=== PATIENT | female | born 1955 | race Hispanic/Latino ===

== ENCOUNTER 2025-03-05 13:02 | Outpatient (CLI) | payer MEDICARE, SELFPAY ==
--- OUTSIDE RECORDS SUMMARY | 2025-03-05 13:26 | XMS_ITS | Clinical Summary ---
Author Organization [facility] Address [address] [place] [address] Care Team Providers Care Packer Insulation Name Role Phone Unavailable Primary Care Provider Unavailabl e Source Comments [facility] Affiliates and Associated Physician Practices is amultiple site organization consisting of ambulatory clinics and hospital sitesin [place], [place], [place] and [place]. This disclosure is being madepursuant to the Care Everywhere program and may not contain all information available regarding this patient. Last updated 18.[facility] Social History Tobacco Use Types Packs/Day Years Used Date Smoking Tobacco: Never Alcohol Use Standard Drinks/Week Comments No 0 (1 standard drink = 0.6 oz pur e alcohol) Comments Unknown Sex and Gender Information Value Date Recorded Sex Assigned at Not on file Legal Sex Female 5:54 PM TREASURY CONSULTANT Gender Identity Not on file Sexual Orientation Not on file Plan of Treatment Health Maintenance Due Date Last Done Comments BONE DENSITY TESTING 1955 COLOGUARD (AGES 45-75) - COL ON CA SCREENING 1956 COLON MONITORING 1956 COLONOSCOPY - COLON CA SCREENING 1956 CT COLONOGRAPHY - COLON CA SCREENING 1956 Colorectal Cancer Screening 1956 FIT - COLON CA SCREENING 1956 FLEX SIG - COLON CA SCREENING 1956 LIPID TESTING 1956 MAMMOGRAM 1956 HEPATITIS C SCREENING 09/28/1974 DTAP/TDAP/TD VACCINES (1 - Tdap) 10/03/1975 PNEUMOCOCCAL VACCINE 50+ (1 of 1 - PCV) 2006 ZOSTER VACCINE (1 of 2) 2006 COVID-19 VACCINE (1 - 2024-2 5 season) 2024 DEPRESSION SCREENING 07/26/2024 MEDICARE AWV CALENDAR YEAR 2024 INFLUENZA VACCINE (#1) 2025 Respiratory Syncytial Virus (RSV) Vaccine Pt: or over 60 yrs (1 - 1-dose 75+ series) 10/03/2031 HEPATITIS B VACCINE Aged Out No longe r eligible based on patient's age to complete this topic HIB VACCINE Aged Out No longer eligi ble based on patient's age to complete this topic HPV VACCINE Aged Out No longer eligi ble based on patient's age to complete this topic MENINGOCOCCAL (Group B) VACC INE SHARED DECISION-MAKING Aged Out No longer eligibl e based on patient's age to complete this topic MENINGOCOCCAL GROUPS A/C/Y/W VACCINE Aged Out No longer eligible b ased on patient's age to complete this topic [place] [address] MEDICAID - OUT OF [facility]
--- OUTSIDE RECORDS SUMMARY | 2025-03-05 13:26 | XMS_ITS | Clinical Summary ---
Author Organization [facility] Address [address] [place] [address] Phone Care Team Providers Care Policy Manager Name Role Phone Kirby Jack MD Primary Care Provider Medications amLODIPine (NORVASC) 5 MG Tablet TAKE ONE TABLET BY MOUTH EVERY EVENING FOR BLOOD PRESSURE 4 Active levETIRAcetam (KEPPRA) 500 MG Tablet TAKE ONE TABLET BY MOUTH THREE TIMES DAILY FOR SEIZURES 4 Active losartan (COZAAR) 50 MG Tablet TAKE ONE TABLET BY MOUTH EVERY MORNING FOR BLOOD PRESSURE 4 Active aspirin EC 81 MG Tablet Delayed Response Take 81 mg by mouth daily. Active atorvastatin (LIPITOR) 20 MG Tablet Take 20 mg by mouth daily. Active Dapagliflozin Propanediol (Farxiga) 10 MG Tablet Take by mouth. Activ e insulin glargine (Lantus) 100 UNIT/ML Solution 100 Units by Subcutaneous route nightly. Active levothyroxine (SYNTHROID) 50 MCG Tablet Take 50 mcg by mouth daily. Active Social History Tobacco Use Types Packs/Day Years Used Date Smoking Tobacco: Never Smokeless Tobacco: Never Tobacco Cessation:Counseling Given: Not Answered Alcohol Use Standard Drinks/Week Comments Never 0 (1 standard drink = 0.6 oz pur e alcohol) Comments Unknown Sex and Gender Information Value Date Recorded Sex Assigned at Not on file Legal Sex Female 9:34 AM CDT Gender Identity Not on file Sexual Orientation Not on file Plan of Treatment Upcoming Encounters Date Type Department Care Team ([facility] Contact Info) Description 12/24/2025 10:00 AM CDT Office Visit [facility] [address] [place] [address] Fahad Henderson MD [address] [place] [address] Health Maintenance Due Date Last Done Comments DEXA Bone Density 1955 Hepatitis C Virus (HCV) Screening 1956 Mammogram 1956 TdaP Immunization 1956 Cologuard 2001 Colonoscopy 2001 Colorectal Cancer Screening 2001 Immunochemical Fecal Occult Blood 2001 Pneumococcal Immunization (5 0+ years) (1 of 1 - PCV) 2006 Zoster Immunization (1 of 2) 2006 Respiratory Syncytial Virus (RSV) Immunization (Adult) (1 - Risk 60-74 years 1-dose series) 2016 SARS-COV-2 Immunization ( season) 2024 Influenza Immunization (#1) 2025 Hepatitis B Immunization Aged Out No longer eligible based on patient's age to complete this topic Human Papillomavirus (HPV) Immunization Aged Out No longer eligible b ased on patient's age to complete this topic Meningococcal Immunization (ACWY) Aged Out No longer eligible based on patient's age to complete this topic Rotavirus Immunization Aged Out No lo nger eligible based on patient's age to complete this topic Insurance MEDICARE [facility] Care Teams Policy Manager Relationship Specialty Start Date End Date Kirby Jack MD [address] [place] [address] PCP - General Internal Medicine 04/14/24
== END 2025-03-05 13:03 | disposition home or self-care (01) ==
LOC: ANHAUDIO 13:04
PROVIDERS: PCP Internal Medicine; Visit Provider Internal Medicine Infectious Disease
DX: H91.93 Unspecified hearing loss, bilateral (principal); H74.8X3 Other specified disorders of middle ear and mastoid, bilateral
CPT/HCPCS: 92553; 92567

== ENCOUNTER 2025-04-26 13:32 | Outpatient (CLI) | payer MEDICARE, SELFPAY ==
--- OUTSIDE RECORDS SUMMARY | 2025-04-26 13:34 | XMS_ITS | Clinical Summary ---
Author Organization [facility] Address [address] [place] [address] Care Team Providers Care Science Writer Name Role Phone Kirby Jack MD Primary Care Provider Source Comments [facility],non-owned Affiliates and Associated Physician Practices is amultiple site organization consisting of ambulatory clinics and hospital sitesin [place], [place], [place] and [place]. This disclosure is being madepursuant to the Care Everywhere program and may not contain all information available regarding this patient. Last updated 18.[facility] Allergies No known active allergies Medications * Be aware that medications may not be up to date on this document. Alwaysverify current medications with the patient. alendronate (Fosamax) 70 MG tablet TAKE ONE TABLET ONCE EVERY WEEK 02/23/20 25 Active amLODIPine (Norvasc) 5 MG tablet TAKE ONE TABLET BY MOUTH EVERY EVENING FOR BLOOD PRESSURE Active aspirin EC (Ecotrin) 81 MG tablet Take 1 (one) tablet by mouth once daily Active atorvastatin (Lipitor) 20 MG tablet TAKE ONE TABLET DAILY EVERY NIGHT AT BEDTIME TO LOWER CHOLESTEROL Active Blood Glucose Monitoring Suppl (Pikhub Verio Flex System) w/Device KIT USE DIRECTED THREE TIMES DAILY, MORNING, MIDDAY & IN THE EVENING 06/02/20 24 Active GNP Earwax Removal Drops 6.5 % otic solution instill FIVE DROPS INTO THE AFFECTED EAR(S) TWICE DAILY EVERY MORNING & EVENING 02/23/20 25 Active dapagliflozin propanediol (Farxiga) 10 MG tablet Take by mouth. Activ e NelbeeTouch Verio test strip USE TO CHECK BLOOD SUGAR THREE TIMES DAILY, MORNING, MIDDAY & IN THE EVENING 05/31/20 Active ibuprofen (Motrin) 800 MG tablet Take 1 (one) tablet by mouth every 6 hours as needed For pain. 06/15/20 Active TRUEplus Insulin Syringe 30G X 5/16 0.5 ML MISC USE DIRECTED TWICE DAILY 05/22/20 Active TRUEplus Lancets 30G MISC USE TO CHECK BLOOD SUGAR THREE TIMES DAILY, MORNING, MIDDAY & IN THE EVENING 06/09/20 Active levETIRAcetam (Keppra) 500 MG tablet TAKE ONE TABLET BY MOUTH THREE TIMES DAILY FOR SEIZURES Active levothyroxine (Synthroid) 50 MCG tablet TAKE ONE TABLET BY MOUTH EVERY MORNING 30 MINUTES BEFORE BREAKFAST FOR THYROID Active losartan (Cozaar) 50 MG tablet Take 1 (one) tablet by mouth every morning for blood pressure Active insulin glargine (Lantus/Semglee ) 100 units/ml injection Inject 28 (twenty eight) Units subcutaneously at bedtime Active fluticasone propionate (Flonase) 50 MCG/ACT nasal spray [place] 2 (two) sprays into each nostril 2 times daily 48 g 4 03/19/20 25 Active azelastine (Astelin) 0.1 % nasal spray [place] 1 (one) spray into each nostril 2 times daily 90 mL 4 03/19/20 25 Active Active Problems Problem Noted Date Diagnosed Date Essential (primary) hypertension Type 2 diabetes mellitus without complication Overview (04/25/2025): IMO 04/25/2025 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 - ENT [address] [place] [phone] Marek Solis MD Middle ear effusion, left (Primary Dx) 04/16/2025 Travel 04/06/2025 Telephone [facility] - Neurology [address] [place] [phone] Kyleigh Mike MD Care Management 04/05/2025 1:00 PM CDT - 04/05/2025 11:59 PM CDT Hospital Encounter [facility] EKG/HOLTER [address] [place] [address] Kyleigh Mike MD Discharge Disposition: Home or Self Care 03/28/2025 Travel 03/21/2025 3:40 PM CDT - 03/21/2025 11:59 PM CDT Hospital Encounter [facility] LAB OP DRAW STATION [address] [place] [address] Discharge Disposition: Home or Self Care 03/21/2025 1:00 PM CDT Office Visit [facility] - Neurology [address] [place] [phone] Kyleigh Mike MD Persistent cognitive impairment (Primary Dx); Epilepsy, generalized, nonconvulsive (HCC) 03/21/2025 Travel 03/19/2025 2:30 PM CDT Office Visit [facility] - ENT [address] [place] [phone] Marek Solis MD Middle ear effusion, left (Primary Dx) 03/19/2025 Travel 03/08/2025 Travel from Last 3 Months Social History Tobacco Use Types Packs/Day Years Used Date Smoking Tobacco: Never Smokeless Tobacco: Never Tobacco Cessation:Counseling Given: Not Answered Alcohol Use Standard Drinks/Week Comments No 0 (1 standard drink = 0.6 oz pur e alcohol) Comments Unknown Sex and Gender Information Value Date Recorded Sex Assigned at Not on file Legal Sex Female 5:54 PM ADAPTED PHYSICAL EDUCATION AIDE Gender Identity Not on file Sexual Orientation Not on file Last Filed Vital Signs Vital Sign Reading Time Taken Comments Blood Pressure 128/73 04/16/2025 2:18 PM CDT Pulse 19 04/16/2025 2:18 PM CDT Temperature 36.7 C (98.1 F) 03/19/2025 2:38 PM CDT Respiratory Rate - - Oxygen Saturation 97% 03/21/2025 1:04 PM CDT Inhaled Oxygen Concentration - - Weight 55 kg (121 lb 3.2 oz) 04/16/2025 2:18 PM CDT Height 144.9 cm (4' 9.05) 04/16/2025 2:18 PM CD T Body Mass Index 26.18 04/16/2025 2:18 PM CDT Plan of Treatment Upcoming Encounters Date Type Department Care Team (Late st Contact Info) Description 05/04/2025 7:45 AM CDT Appointment [facility] [address] [address] [place] [address] 05/30/2025 2:00 PM ADAPTED PHYSICAL EDUCATION AIDE Office Visit [facility] - Neurology [address] [place] [address], [place] [phone] Winsome Vega APRN-CLINICAL PSYCHOLOGY PROFESSOR [address] [place] [phone] 06/04/2025 2:30 PM ADAPTED PHYSICAL EDUCATION AIDE Office Visit [facility] - ENT [address] [place] [phone] Marek Solis MD [address] [place] [address] [address] [place] [address] Health Maintenance Due Date Last Done Comments BONE DENSITY TESTING 1956 COLON MONITORING 1956 COLONOSCOPY - COLON CA SCREENING 1956 CT COLONOGRAPHY - COLON CA SCREENING 1956 FIT - COLON CA SCREENING 1956 FLEX SIG - COLON CA SCREENING 1956 MAMMOGRAM 1956 HEPATITIS C SCREENING 09/28/1974 DIABETES-SERUM CREATININE 1974 DTAP/TDAP/TD VACCINES (1 - Tdap) 10/03/1975 PNEUMOCOCCAL VACCINE 50+ (1 of 2 - PCV) 10/03/1975 ZOSTER VACCINE (1 of 2) 2006 Respiratory Syncytial Virus (RSV) Vaccine Pt: or over 60 yrs (1 - Risk 60-74 years 1-dose series) 2016 DEPRESSION SCREENING 07/26/2024 DIABETES - URINE PROTEIN SCREENING 07/26/2024 MEDICARE AWV CALENDAR YEAR 2024 DIABETES RETINOPATHY SCREENING 03/21/2025 DIABETES-FOOT EXAM WITH MONOFILAMENT 03/21/2025 DIABETES-HGB A1C 03/21/2025 COVID-19 VACCINE (1 - 2023-2 5 season) 2025 INFLUENZA VACCINE (#1) 2025 COLOGUARD (AGES 45-75) - COL ON CA SCREENING 03/09/2026 03/09/2023 Colorectal Cancer Screening 03/09/2026 HEPATITIS B VACCINE Aged Out No longe [...] on patient's age to complete this topic Procedures Procedure Name Priority Date/Time Associated Diagnosis Comments EKG 12-LEAD Routine 04/05/2025 12:51 PM CDT Epilepsy, generalized, nonconvulsive (HCC) ENCEPHALOPATHY AUTOIMMUNE EVAL BLOOD Routine 03/21/2025 4:02 PM CDT Epilepsy, generalized, nonconvulsive (HCC) from Last 3 Months Results * EKG 12-LEAD - OFFICE PERFORMED (04/05/2025 12:51 PM CDT) Pathologist [facility] Ventricular Rate 58 BPM [facility] Atrial Rate 58 BPM [facility] P-R Interval 150 ms [facility] QRS Duration ms 72 ms [facility] Q-T Interval ms 442 ms [facility] QTC Calculation (Bezet) 433 ms [facility] Calculated P [place] 39 degrees [facility] Calculated R [place] 21 degrees [facility] Calculated T [place] 53 degrees [facility] Interpretation EKG SINUS BRADYCARDIA SEPTAL INFARCT , AGE UNDETERMINED ABNORMAL ECG NO PREVIOUS ECGS AVAILABLE Confirmed by ALEXY VINCETN, J CARLOS ([id number]) on 04/09/2025 11:22:15 PM [facility] MUSE 04/05/2025 12:5 1 PM CDT 04/09/2025 11:22 PM CDT Kyleigh Mike MD ECG ORDERABLES Edited Result - Final [facility] * (ABNORMAL) ENCEPHALOPATHY AUTOIMMUNE EVAL BLOOD (03/21/2025 4:02 PM CDT) YANICK 65 Antibody 0.08(H) <=0.02 nmol/L 03/29/2025 2:05 PM CDT [facility] ([facility]) Comment: ADDITIONAL INFORMATION This test was developed and its performance characteristics determined by [facility] in a manner consistent with CLIA requirements. This test has not been cleared or approved by the U.S. Food and Drug Administration. AMPA-R AB CBA, S Negative Negative 03/29/20 25 2:05 PM CDT [facility] ([facility]) Comment: ADDITIONAL INFORMATION This test was developed and its performance characteristics determined by [facility] in a manner consistent with CLIA requirements. This test has not been cleared or approved by the U.S. Food and Drug Administration. CASPR2-IgG CBA, S Negative Negative 025 2:05 PM CDT [facility] ([facility]) Comment: ADDITIONAL INFORMATION This test was developed and its performance characteristics determined by [facility] in a manner consistent with CLIA requirements. This test has not been cleared or approved by the U.S. Food and Drug Administration. DPPX Ab CBA, S Negative Negative 03/29/2025 2:05 PM CDT [facility] ([facility]) Comment: ADDITIONAL INFORMATION This test was developed and its performance characteristics determined by [facility] in a manner consistent with CLIA requirements. This test has not been cleared or approved by the U.S. Food and Drug Administration. DONNA-B-R AB CBA, S Negative Negative 09/04/ 2025 2:05 PM CDT [facility] ([facility]) Comment: ADDITIONAL INFORMATION This test was developed and its performance characteristics determined by [facility] in a manner consistent with CLIA requirements. This test has not been cleared or approved by the U.S. Food and Drug Administration. IgLON5 CBA, S Negative Negative 03/29/2025 2:05 PM CDT [facility] ([facility]) Comment: ADDITIONAL INFORMATION This test was developed and its performance characteristics determined by [facility] in a manner consistent with CLIA requirements. This test has not been cleared or approved by the U.S. Food and Drug Administration. LGI1-IGG CBA, S Negative Negative 5 2:05 PM CDT [facility] ([facility]) Comment: ADDITIONAL INFORMATION This test was developed and its performance characteristics determined by [facility] in a manner consistent with CLIA requirements. This test has not been cleared or approved by the U.S. Food and Drug Administration. NMDA-R AB CBA, S Negative Negative 03/29/20 25 2:05 PM CDT [facility] ([facility]) Comment: ADDITIONAL INFORMATION This test was developed and its performance characteristics determined by [facility] in a manner consistent with CLIA requirements. This test has not been cleared or approved by the U.S. Food and Drug Administration. Amphiphysin Ab, S Negative Negative 025 2:05 PM CDT [facility] ([facility]) Comment: ADDITIONAL INFORMATION This test was developed and its performance characteristics determined by [facility] in a manner consistent with CLIA requirements. This test has not been cleared or approved by the U.S. Food and Drug Administration. AGNA-1, S Negative Negative 03/29/2025 2:05 PM CDT [facility] ([facility]) Comment: ADDITIONAL INFORMATION This test was developed and its performance characteristics determined by [facility] in a manner consistent with CLIA requirements. This test has not been cleared or approved by the U.S. Food and Drug Administration. MOODY-1, S Negative Negative 03/29/2025 2:05 PM CDT [facility] ([facility]) Comment: ADDITIONAL INFORMATION This test was developed and its performance characteristics determined by [facility] in a manner consistent with CLIA requirements. This test has not been cleared or approved by the U.S. Food and Drug Administration. MOODY-2, S Negative Negative 03/29/2025 2:05 PM CDT [facility] ([facility]) Comment: ADDITIONAL INFORMATION This test was developed and its performance characteristics determined by [facility] in a manner consistent with CLIA requirements. This test has not been cleared or approved by the U.S. Food and Drug Administration. MOODY-3, S Negative Negative 03/29/2025 2:05 PM CDT [facility] ([facility]) Comment: ADDITIONAL INFORMATION This test was developed and its performance characteristics determined by [facility] in a manner consistent with CLIA requirements. This test has not been cleared or approved by the U.S. Food and Drug Administration. CRMP-5-IgG, S Negative Negative 03/29/2025 2:05 PM CDT [facility] ([facility]) Comment: ADDITIONAL INFORMATION This test was developed and its performance characteristics determined by [facility] in a manner consistent with CLIA requirements. This test has not been cleared or approved by the U.S. Food and Drug Administration. GFAP IGA, S Negative Negative 03/29/2025 2:05 PM CDT [facility] ([facility]) Comment: ADDITIONAL INFORMATION This test was developed and its performance characteristics determined by [facility] in a manner consistent with CLIA requirements. This test has not been cleared or approved by the U.S. Food and Drug Administration. mGluR1 Ab IFA Negative Negative 03/29/2025 2:05 PM CDT [facility] ([facility]) Comment: ADDITIONAL INFORMATION This test was developed and its performance characteristics determined by [facility] in a manner consistent with CLIA requirements. This test has not been cleared or approved by the U.S. Food and Drug Administration. Neurochondrin IFA, S Negative Negative 03/29/2025 2:05 PM CDT [facility] ([facility]) Comment: ADDITIONAL INFORMATION This test was developed and its performance characteristics determined by [facility] in a manner consistent with CLIA requirements. This test has not been cleared or approved by the U.S. Food and Drug Administration. NIF IFA, S Negative Negative 03/29/2025 2:05 PM CDT [facility] ([facility]) Comment: ADDITIONAL INFORMATION This test was developed and its performance characteristics determined by [facility] in a manner consistent with CLIA requirements. This test has not been cleared or approved by the U.S. Food and Drug Administration. CONSTRUCTION PLANT OPERATOR-1, S Negative Negative 03/29/2025 2:05 PM CDT [facility] ([facility]) Comment: ADDITIONAL INFORMATION This test was developed and its performance characteristics determined by [facility] in a manner consistent with CLIA requirements. This test has not been cleared or approved by the U.S. Food and Drug Administration. CONSTRUCTION PLANT OPERATOR-2, S Negative Negative 03/29/2025 2:05 PM CDT [facility] ([facility]) Comment: ADDITIONAL INFORMATION This test was developed and its performance characteristics determined by [facility] in a manner consistent with CLIA requirements. This test has not been cleared or approved by the U.S. Food and Drug Administration. CONSTRUCTION PLANT OPERATOR-Tr, S Negative Negative 03/29/2025 2:05 PM CDT [facility] ([facility]) Comment: ADDITIONAL INFORMATION This test was developed and its performance characteristics determined by [facility] in a manner consistent with CLIA requirements. This test has not been cleared or approved by the U.S. Food and Drug Administration. PDE10A Ab IFA Negative Negative 03/29/2025 2:05 PM CDT [facility] ([facility]) Comment: ADDITIONAL INFORMATION This test was developed and its performance characteristics determined by [facility] in a manner consistent with CLIA requirements. This test has not been cleared or approved by the U.S. Food and Drug Administration. Septin-7 IFA, S Negative Negative 2:05 PM CDT [facility] ([facility]) Comment: ADDITIONAL INFORMATION This test was developed and its performance characteristics determined by [facility] in a manner consistent with CLIA requirements. This test has not been cleared or approved by the U.S. Food and Drug Administration. [id number] Ab IFA Negative Negative 03/29/2025 2:05 PM CDT [facility] ([facility]) Comment: ADDITIONAL INFORMATION This test was developed and its performance characteristics determined by [facility] in a manner consistent with CLIA requirements. This test has not been cleared or approved by the U.S. Food and Drug Administration. Encephalopathy Interpretation, S SEE COMMENTS 03/29/2025 2:05 PM CDT [facility] ([facility]) Comment: The following antibody was identified: Glutamic Acid Decarboxylase. * This profile is consistent with predisposition to thyrogastric disorders, including thyroiditis, pernicious anemia, and type 1 diabetes, but has low specificity for autoimmune encephalopathy. GAD65 antibody values less than 2.00 nM have a lower positive predictive value for neurological autoimmunity than values of 20.0 nM and higher. * IFA Notes None. 03/29/2025 2:05 PM CDT [facility] ([facility]) Comment: Test Performed by: [place] [address] Gastroenterology Physician: Erasto Hermosillo Ph.D.; CLIA# [id number] Blood BLOOD SPECIMEN / Unknown Lab Venipuncture / Unknown 03/21/2025 4:02 PM CDT 03/21/2025 4:22 PM CDT us Kyleigh Mike MD LAB - CHEMISTRY ORDERABLES Fin al Result [facility] ([facility]) [address] from Last 3 Months Insurance MEDICAID - [facility] MEDICAID [place] [employer] [place] Care Teams Science Writer Relationship Specialty Start Date End Date Kirby Jack MD [address] [place], [place] [id number] PCP - General Internal Medicine 03/19/25
--- OUTSIDE RECORDS SUMMARY | 2025-04-26 13:34 | XMS_ITS | Clinical Summary ---
Author Organization [facility] Address [address] [place] [address] Phone Care Team Providers Care Resort Host Name Role Phone Kirby Jack MD Primary [...] Upcoming Encounters Date Type Department Care Team ([facility] Contact Info) Description 12/24/2025 10:00 AM CDT Office Visit [facility] [address] [place] [phone] Fahad Henderson MD [address] [place] [address] Health Maintenance Due Date Last [...] to complete this topic Insurance MEDICARE C [facility] Care Teams Resort Host Relationship Specialty Start Date End Date Kirby Jack MD [address] [place] [address] PCP - General Internal Medicine 04/14/24
== END 2025-04-26 13:33 | disposition home or self-care (01) ==
LOC: ANHAUDIO 13:32
PROVIDERS: PCP Internal Medicine; Visit Provider Internal Medicine Infectious Disease
DX: H74.8X3 Other specified disorders of middle ear and mastoid, bilateral (principal); H95.89 Other postprocedural complications and disorders of the ear and mastoid process, not elsewhere classified
CPT/HCPCS: 92553